=== PATIENT | female | born 1980 | race Caucasian/White ===

== ENCOUNTER 2022-07-17 12:50 | Emergency (ER) | payer OTHER, SELFPAY ==
--- NOTE | ~2022-07-17 | XR_ITS ---
EXAMINATION: XR TOE, right great CLINICAL INFORMATION: Pain COMPARISON: None available at the time of this dictation. TECHNIQUE: Frontal and lateral views of the toe obtained. AP foot FINDINGS: Mildly displaced comminuted fracture at the base of the distal phalanx extending into the articular surface. There is surrounding soft tissue swelling. Metatarsophalangeal and interphalangeal joints are intact. Surrounding soft tissue is normal. XR/XR toe RT min 2V IMPRESSION: Mildly displaced comminuted intra-articular fracture at the base of the distal phalanx great toe.
[2022-07-17 12:54] VITALS: BP 126/82; PULSE 95; RESP 18; TEMP 36.6; O2SAT 98; BMI 31.6
--- NOTE | 2022-07-17 15:09 | ED.LOWEXIN ---
HPI - Extremity Injury (Lower) General Chief Complaint: Extremity Injury, Lower Stated Complaint: Broken? Big toe R foot Time Seen by Provider: 07/17/22 14:45 Source: patient Mode of arrival: ambulatory Limitations: no limitations History of Present Illness HPI Narrative: 41 yold female presents to the ED for right great toe pain. patient states yesterday she dropped a large candle on her big toe which than purplish. patient denies any leg swelling, calf pain, bleeding, numbness/tinling, coolness, or any other concerning symptoms. Related Data Previous Rx's Medication Instructions Recorded naproxen 500 mg tablet 500 mg PO BID PRN pain 7 days #14 07/17/22 tabs Allergies Allergy/AdvReac Type Severity Reaction Status Date / Time amoxicillin Allergy Rash Verified 07/17/22 12:58 Penicillins [PCN] Allergy Rash Verified 07/17/22 12:58 Review of Systems Review of Systems: RIght big toe pain Yes all other systems are reviewed and are negative [facility] Social History Social History Advance Directives: No Advance Directives Information Provided: No Physical Exam Vital Signs: Vital Signs: Last Vital Signs Temp 98 F 07/17/22 12:54 Pulse 95 07/17/22 12:54 Resp 18 07/17/22 12:54 BP 126/82 07/17/22 12:54 Pulse Ox 98 07/17/22 12:54 O2 Del Method 07/17/22 12:54 BMI result Body Mass Index 31.6 Const: General: cooperative, healthy appearing, comfortable, no acute distress, well developed, alert and awake Orientation/consciousness: oriented to person, oriented to time and patient oriented x3 HEENT: Head: Yes normal to inspection, Yes No palpable skull fracture present, Yes normocephalic, Yes atraumatic and No abrasion Eyes: General: appearance normal, both eyes and all related structures Neck: Neck: Yes normal visual inspection, Yes full ROM, Yes no lymphadenopathy, Yes no meningeal signs, Yes trachea midline, Yes supple, No anterior neck swelling and No tender Chest: Chest palpation & inspection: normal inspection of the chest and normal palpation of entire chest wall Resp: Effort & Inspection: normal respiratory effort and able to speak in complete sentences Auscultation: clear to auscultation bilaterally Cardio: Jugular venous distension: no JVD Heart sounds: S1 normal heart sound present and S2 normal heart sound present GI: Inspection: Yes normal to inspection and No abdominal wall ecchymosis Palpation (GI): Soft to palpation, not firm, nontender, no guarding and not rigid : General: No CVA tenderness and Yes no CVA tenderness Back/Spine/Pelvis: Back: no CVA tenderness, No CVA tenderness and No back tenderness Skin: General skin exam: no rashes or lesions noted and elasticity normal Neuro: General: oriented to person, oriented to time, patient oriented x3, gait normal, tone normal and no meningeal signs Extrem: General: Yes normal to inspection and Yes full ROM Ankle/foot/toe images: 1. Positive for ecchymosis and tenderness on palpation. Capillary refill is intact. Rest of extremity normal. Motor/neuro/vascular exam intact Psych: Appearance: grossly normal, well kempt and not disheveled Course Course Course Narrative: Foot x-ray ordered. Reevaluation(s) Reevaluation #1: X-ray showed great toe fracture. PATIENT PLACED IN POST-OP SHOE AND GIVEN PAIN MEDS Time: 15:29 MDM - Extremity Injury (Lower) MDM Narrative Medical decision making narrative: foOT FRACTURE Discharge Plan Discharge Clinical Impression: Fracture of toe Patient Disposition: Home, Self-Care Instructions: Toe Fracture (ED) Additional Instructions: YOUR XRAY SHOWS GREAT TOE FRACTURE. yOU WILL BE NEED FOLLOW UP WI oRTHOPEDIC sURGEON. rETURN TO THE ed FOR WORSENING PAIN, SWELLING, REDNESS, NUMBNESS, TINGLING, LEG PAIN, CALF PAIN, NUMBNESS/TINGLING OR ANY OTHER CONCERNING SYMPTOMS. Prescriptions: New naproxen 500 mg tablet 500 mg PO BID PRN (Reason: pain) 7 Days Qty: 14 0RF Referrals: [facility] [place] [facility] [Provider Group] (Right great toe fracture) Stand Alone Forms: Work/School Release Interventions: ED Discharge Assessment Last Done: 07/17/22 16:01 Discharge Date/Time: 07/17/22 16:02 Print Language: Mongolian
[2022-07-17] MEDS: Ibuprofen 400 MG TABLET PO (15:15)
[2022-07-17] MEDS: Acetaminophen 325 MG TABLET 975 MG PO (15:15)
== END 2022-07-17 16:02 | disposition home or self-care (01) ==
PROVIDERS: Emergency Provider Student in an Organized Health Care Education/Training Program; PCP Internal Medicine
DX: S92.401A Displaced unspecified fracture of right great toe, initial encounter for closed fracture (principal); M79.674 Pain in right toe(s); Y29.XXXA Contact with blunt object, undetermined intent, initial encounter; Y93.9 Activity, unspecified; Y92.9 Unspecified place or not applicable; Y99.9 Unspecified external cause status
CPT/HCPCS: 73660; 99283; 99284

== ENCOUNTER 2022-08-09 22:12 | Emergency (ER) | payer OTHER, SELFPAY ==
--- NOTE | 2022-08-09 | ECG_ITS ---
Test Reason : OVERDOSES Blood Pressure : / mmHG Vent. Rate : 103 BPM Atrial Rate : 103 BPM P-R Int : 160 ms QRS Dur : 078 ms QT Int : 332 ms P-R-T Axes : 053 -01 015 degrees QTc Int : 434 ms Sinus tachycardia RSR' or QR pattern in V1 suggests right ventricular conduction delay Otherwise normal ECG No previous ECGs available Referred By: Mela Andino Electronically Signed By:OMARI VARGAS MD
[2022-08-09 22:19] VITALS: BP 142/95; PULSE 107; RESP 22; TEMP 36.9; O2SAT 99; BMI 31.6
--- NOTE | 2022-08-09 22:38 | ED.OVERDOSE ---
HPI - Overdose General Chief Complaint: Overdose Stated Complaint: overdose Time Seen by Provider: 08/09/22 22:14 Source: patient and EMS Mode of arrival: EMS Limitations: no limitations History of Present Illness HPI Narrative: 41-year-old female came in by ambulance after overdosed on half a bag of heroin by sniffing patient stated that she did not use for the last 3 years and used today to get high, no SI, no HI was found by her friend unresponsive patient was given 8 mg of Narcan intranasally by the police and patient responded and regained her consciousness, no CPR was required. Patient in the emergency department is awake, alert, able to answer questions, no SI or HI or hallucination. Related Data Previous Rx's Medication Instructions Recorded naproxen 500 mg tablet 500 mg PO BID PRN pain 7 days #14 07/17/22 tabs nitrofurantoin 100 mg PO Q12H 7 days #14 caps 08/09/22 monohydrate/macrocrystals 100 mg capsule (Macrobid) Allergies Allergy/AdvReac Type Severity Reaction Status Date / Time amoxicillin Allergy Rash Verified 07/17/22 12:58 Penicillins [PCN] Allergy Rash Verified 07/17/22 12:58 Review of Systems Review of Systems: All other systems are reviewed and are negative Constitutional: Reports as per HPI and Reports no additional constitutional complaints Eyes: Reports as per HPI and Reports no additional eye complaints Reports system reviewed and no additional complaints, except as documented Cardiovascular: Reports as per HPI and Reports no additional cardiovascular complaints Respiratory: Reports as per HPI and Reports no additional respiratory complaints Gastrointestinal: Reports as per HPI and Reports no additional gastrointestinal complaints Genitourinary: Reports no additional female genitourinary complaints Musculoskeletal: Reports no additional musculoskeletal complaints Skin/Breast: Reports system reviewed and no additional complaints, except as docu Psychiatric: Reports no additional psychiatric complaints Endocrine: Reports no additional endocrine complaints Hematologic/Lymphatic: Reports no additional hematologic/lymphatic complaints Allergic/Immunologic: Reports no additional allergic/immunologic complaints Reports system reviewed and no additional complaints, except as documented and Reports Abnormal speech present Physical Exam Vital Signs: Vital Signs: Last Vital Signs Temp 98.4 F 08/09/22 22:19 Pulse 107 H 08/09/22 22:19 Resp 22 H 08/09/22 22:19 BP 142/95 H 08/09/22 22:19 Pulse Ox 99 08/09/22 22:19 O2 Del Method 08/09/22 22:19 BMI result Body Mass Index 31.6 Vital signs have been reviewed as appeared to be correct. Blood pressure elevated. Heart rate elevated. Respiration rate elevated. Temperature normal. Oxygen saturation normal. Appearance: Alert. Oriented X3. No acute distress. Head: Normal external exam. Normocephalic. Atraumatic. No Mobley signs noted. No raccoon eyes noted Eyes: PERRLA. EOMI. Conjunctiva and sclera normal. Eyelids normal. ENT: TM's Normal. Pharynx normal. Uvula midline. Moist mucous membranes. No trismus noted. No drooling noted. No muffled voice noted. Neck: Normal inspection. Neck supple. FROM. No adenopathy. Thyroid Normal. No meningeal signs. No neck mass noted. CVS: Normal heart rate and rhythm. Heart sound normal. No murmurs noted. Pulses normal throughout. Respiratory: No respiratory distress. Painless inspiration. Breath sounds normal. No wheezes/rales/rhonchi noted. Chest nontender. No accessory muscle usage noted or decreased air movement noted. Abdomen: Soft and nontender. Bowel sounds normal in all 4 quadrants. No distention noted. No organomegaly noted. No visible injury noted. Back: No CVA tenderness. Full range of motion noted. Skin: Skin warm and dry. Normal skin color. Normal skin turgor. No rashes/lesions/lacerations noted. Extremities: No lower extremity edema. Extremities exhibit normal range of motion. Extremities nontender. Neuro: Oriented X 3. Cranial nerve exam: II-XII are grossly intact No motor deficit. No sensory deficit. Reflexes normal. Course Course Course Narrative: 41-year-old female came in unresponsive after using half a bag of heroin by sniffing patient required 8 mg of Narcan nasally, patient was observed in the emergency department was discharged with Narcan to take home, patient declined SI or HI, patient claimed that she is not a regular user the last use was 3 hours ago and she only use occasionally, was evaluated by care team who recommended no further intervention and would like to be discharged. UTI will start on macrobid and encourage to drink plenty of fluid. MDM - Overdose Lab Data Attestation: I reviewed the patient's lab results. Labs: Lab Results 11/08/09/22 08/09/22 Range/Units 22:59 22:59 22:59 Urine Color Yellow Urine Appearance Cloudy Urine pH 6.5 (5.0-9.0) Ur Specific [place] 1.020 (1.005-1.025) Urine Protein 30 (1+) H (Neg-Trace) mg/dL Urine Glucose (UA) Negative (Negative) mg/dL Urine Ketones Trace (Negative) mg/dL Urine Blood Negative (Negative) Urine Nitrite Negative (Negative) Ur Leukocyte Esterase Small (1+) H (Negative) Urine RBC 0-2 (0-2) /HPF Urine WBC 11-20 H (0-5) /HPF Ur Squamous Epith Cells 6-10 (0-2) /HPF Urine Bacteria 4+ (None Seen) Hyaline Casts 0-2 (0-2) /LPF Urine Test NEGATIVE (NEGATIVE) Urine Opiates Screen POSITIVE H (Not Detect) Urine Fentanyl Screen POSITIVE H (Not Detect) Ur Barbiturates Screen Not Detected (Not Detect) Ur Phencyclidine Scrn Not Detected (Not Detect) Ur Amphetamines Screen Not Detected (Not Detect) U Benzodiazepines Scrn Not Detected (Not Detect) Urine Cocaine Screen POSITIVE H (Not Detect) U Marijuana (THC) Screen Not Detected (Not Detect) Discharge Plan Discharge Clinical Impression: Drug overdose, Substance abuse, Urinary tract infection Patient Disposition: Home, Self-Care Instructions: Polysubstance Abuse (ED) Prescriptions: New nitrofurantoin monohyd/m-cryst [Macrobid] 100 mg capsule 100 mg PO Q12H 7 Days Qty: 14 0RF Rx Instructions: must administer with a meal/food No Action naproxen 500 mg tablet 500 mg PO BID PRN (Reason: pain) 7 Days Qty: 14 0RF
[2022-08-09 23:06] LABS: Appearance Urine Cloudy; Color Urine Yellow; Glucose Urine UA Negative (Negative); Leukocyte Esterase Urine Small (1+) (Negative); Nitrite Urine Negative (Negative); PH 6.5 (5.0-9.0); UMIC TRIGGER UACC YES; Urine Blood Negative (Negative); Urine Ketones Trace mg/dL (Negative); Urine Protein 30 (1+) mg/dL (Neg-Trace)
[2022-08-09 23:08] LABS: UPreg QC Valid YES; Urine Pregnancy NEGATIVE (NEGATIVE)
[2022-08-09 23:11] LABS: Bacteria Urine 4+ (None Seen); Hyaline Casts Urine 0-2 /LPF (0-2); RBC Urine 0-2 /HPF (0-2); UACC Culture Trigger YES
[2022-08-09 23:28] LABS: Amphetamine Screen Urine Not Detected (Not Detect); Barbiturates, Urine Not Detected (Not Detect); Benzodiazepines Screen Urine Not Detected (Not Detect); Cannabinoid Screen Urine Not Detected (Not Detect); Cocaine Screen Urine POSITIVE (Not Detect); Fentanyl, urine POSITIVE (Not Detect); Opiate Screen Urine POSITIVE (Not Detect); Phencyclidine Screen Urine Not Detected (Not Detect)
--- NOTE | 2022-08-10 00:12 | MHC.CARE ---
Pt is seen for a SUDE. Pt explains that she has been clean for three years. She states she thinks she broke her toe and has been struggling with the pain for over a month and feels that her PCP is not taking her seriously. She states she did not anticipate on using today, but couldn't fathom the pain and went to look for a percocet on the street couldn't find one so did a small amount of heroin. She states she is stressed out with the holiday and now really ashamed of herself, also considering she was taken off suboxone in Oct for doing well. She shares that she has a therapist, and is not interested in any services as she feels this was an isolated incident. States she only used heroin for the pain and has a ride home. Pt is tearful throughout eval.
[2022-08-10] MEDS: Naloxone HCl Nasal TAKE HOME 4 MG SPRAY NOSTRILALT (00:28)
[2022-08-10] MEDS: Nitrofurantoin Monohyd/M-Cryst 100 MG CAPSULE PO (00:28)
--- NOTE | 2022-08-10 00:28 | PC.NURSE ---
Pt was given Narcan to take at home to prevent overdose. Pt verbalized understanding of education.
== END 2022-08-10 00:58 | disposition home or self-care (01) ==
PROVIDERS: Emergency Provider Emergency Medicine
DX: T40.1X1A Poisoning by heroin, accidental (unintentional), initial encounter (principal); R40.4 Transient alteration of awareness; F19.10 Other psychoactive substance abuse, uncomplicated; Y92.9 Unspecified place or not applicable; N39.0 Urinary tract infection, site not specified; B96.1 Klebsiella pneumoniae [K. pneumoniae] as the cause of diseases classified elsewhere
CPT/HCPCS: 80307; 81001; 81025; 87086; 87088; 87186; 93005; 99284

== ENCOUNTER 2023-01-25 13:57 | Emergency (ER) | payer OTHER, SELFPAY ==
--- NOTE | 2023-01-25 | ECG_ITS ---
Test Reason : tachycardia Blood Pressure : / mmHG Vent. Rate : 106 BPM Atrial Rate : 106 BPM P-R Int : 154 ms QRS Dur : 094 ms QT Int : 338 ms P-R-T Axes : 048 000 014 degrees QTc Int : 448 ms Sinus tachycardia Incomplete right bundle branch block Abnormal ECG When compared with ECG of 09-AUG-2022 22:49, No significant change was found Referred By: Sowmya Sexton Electronically Signed By:MAX WALTON
--- NOTE | ~2023-01-25 | XR_ITS ---
EXAMINATION: XR TIBIA AND FIBULA, LEFT CLINICAL INFORMATION: Trauma, pain, hematoma. COMPARISON: None available. TECHNIQUE: AP and lateral views of the left tibia and fibula were obtained. FINDINGS: Asymmetric soft tissue thickening along the medial and posterior surface of the mid calf. No unexpected radiopaque foreign bodies. No acute fractures or malalignment. XR/XR tibia fibula LT 2V IMPRESSION: 1. Asymmetric soft tissue thickening along the medial and posterior surface of the mid calf. 2. No acute fractures or malalignment.
--- NOTE | ~2023-01-25 | US_ITS ---
EXAMINATION: US VENOUS ULTRASOUND WITH DOPPLER LOWER EXTREMITY, LEFT CLINICAL INFORMATION: Left lower extremity edema. COMPARISON: None available. TECHNIQUE: Ultrasound of the deep veins is performed from the hip to the calf with compression sonography and color and pulse Doppler assessment. Spectral analysis with color-flow imaging is performed. FINDINGS: There is normal venous compression and respiratory variation and augmented flow. The visualized common femoral vein, superficial femoral vein, profunda femoral vein, popliteal vein, and the trifurcation region shows no evidence of deep venous thrombosis. There is no significant popliteal fossa cyst. There is a complex collection in the medial mid calf measuring 7.5 x 2 x 4.8 cm with multiple internal septations and debris. No definite internal vascularity. There is surrounding hyperemia. Enlarged and somewhat rounded left inguinal lymph node measuring 1.2 cm. US/US venous duplex LE IMPRESSION: 1. No DVT demonstrated in the left lower extremity. 2. There is a 7.5 cm complex multiloculated collection in the medial mid calf with surrounding hyperemia. Nonspecific could represent a hematoma or an abscess. Recommend a short-term follow-up ultrasound to ensure resolution and to rule out malignancy. 3. Enlarged and rounded left inguinal lymph node could be reactive, a short-term follow-up is also recommended.
--- NOTE | ~2023-01-25 | XR_ITS ---
EXAMINATION: XR CHEST CLINICAL INFORMATION: Chest pain. COMPARISON: None available. TECHNIQUE: 2 views of the chest were obtained. FINDINGS: No significant abnormality is noted involving the heart, lungs, mediastinum, bony thorax or soft tissues. XR/XR chest 2V IMPRESSION: Unremarkable examination.
--- NOTE | ~2023-01-25 | XR_ITS ---
EXAMINATION: XR FINGER, LEFT CLINICAL INFORMATION: History of left fourth finger fracture with surgical repair. COMPARISON: None available. TECHNIQUE: 3 views of the left ring finger. FINDINGS: There are 4 traversing pins along the distal fourth middle phalanx overlying a mildly displaced comminuted fracture. There is surrounding soft tissue thickening. No additional fractures. Carpal rows are maintained. No other significant soft tissue abnormality. XR/XR finger LT min 2V IMPRESSION: Mildly displaced comminuted fracture of the fourth middle phalanx with traversing orthopedic pins and surrounding soft tissue thickening. Prior examinations are not available for comparison. Soft tissue thickening could potentially represent superimposed infection, correlate with physical examination. There is no significant signs of healing, the fracture lines are still visible with no significant osseous bridging or callus formation.
[2023-01-25 14:05] VITALS: BP 136/102; BP 154/90; PULSE 120; PULSE 127; TEMP 37.4; O2SAT 97; O2SAT 99; BMI 35.9
--- NOTE | 2023-01-25 14:08 | ED.GENADULT ---
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 repair.? COMPARISON: None available.? TECHNIQUE: 3 views of the left ring finger. FINDINGS: There are 4 traversing pins along the distal fourth middle phalanx overlying a mildly displaced comminuted fracture. There is surrounding soft tissue thickening. No additional fractures. Carpal rows are maintained. No other significant soft tissue abnormality.? XR/XR finger LT min 2V IMPRESSION: Mildly displaced comminuted fracture of the fourth middle phalanx with traversing orthopedic pins and surrounding soft tissue thickening. Prior examinations are not available for comparison. Soft tissue thickening could potentially represent superimposed infection, correlate with physical examination. There is no significant signs of healing, the fracture lines are still visible with no significant osseous bridging or callus formation. Dictated By: Francheska Nobles Signed By: <Electronically signed by Parish Nobles in OV> 01/25/23 1622 DD/ 1604 TD/TT:? Hall Manager: EXAMINATION: XR CHEST CLINICAL INFORMATION: Chest pain. COMPARISON: None available. TECHNIQUE: 2 views of the chest were obtained. FINDINGS: No significant abnormality is noted involving the heart, lungs, mediastinum, bony thorax or soft tissues. XR/XR chest 2V IMPRESSION: Unremarkable examination. Dictated By: Francheska Nobles Signed By: <Electronically signed by Parish Nobles in OV> 01/25/23 1619 DD/ 1604 TD/TT:? Hall Manager: External Record Review External record reviewed: Inpatient record, Office record, Outpatient record, Prior outpatient labs, Prior outpatient radiology, Primary care record and Outside ED record Scores Heart Score History: -0- slightly suspicious ECG: -0- normal Age: -0- < or = 45 Risk factory: -1- 1 or 2 risk factors Discharge Plan Discharge Clinical Impression: Cellulitis, Cocaine abuse, Anxiety, Opiate use Patient Disposition: Home, Self-Care Instructions: Anxiety (ED), Cellulitis (ED), Cocaine Abuse (ED), Opioid Use Disorder (ED) Additional Instructions: Stop abusing drugs. You need to follow up with Dr. Macario tomorrow regarding your finger fracture. Take full courses of antibiotics. If any new or worsening symptoms occur, including but not limited to fevers, chills, chest pain, shortness of breath, increased redness, suicidal or homicidal ideation swelling, please return for re-evaluation. Prescriptions: No Action ibuprofen 600 mg tablet 600 mg PO TID PRN (Reason: pain) atomoxetine 18 mg capsule 18 mg PO BID bupropion HCl 300 mg tablet extended release 24 hr 300 mg PO DAILY Referrals: [facility] [Provider Group] - 2 days Benja Huitron MD [Primary Care Provider] - 2 days
[2023-01-25 15:52] LABS: MANUAL DIFF FLAG NO
[2023-01-25 15:54] LABS: Basophils Absolute Auto 0.1 X10*3/uL (0.0-0.2); Basophils Percent Auto 0.7 % (0-2); Eosinophils Absolute Auto 0.1 X10*3/uL (0.0-0.4); Eosinophils Percent Auto 1.2 % (0-4); Hematocrit 39.7 % (37.0-47.0); Hemoglobin 13.6 g/dl (12.0-16.0); Imm Gran Abs Auto 0.02 X10*3/uL (0.00-0.03); Imm Gran Pct Auto 0.2 % (0.0-0.4); Lymphocytes Absolute Auto 2.3 X10*3/uL (1.2-4.9); Lymphocytes Percent Auto 23.8 % (20-40); Mean Corpuscular HGB Conc 34.3 g/dl (31.0-35.0); Mean Corpuscular Hemoglobin 30.9 pg (27.0-33.0); Mean Corpuscular Volume 90.2 fL (80.0-98.0); Mean Platelet Volume 9.6 fL (9.4-12.3); Monocytes Absolute Auto 1.1 X10*3/uL (0.1-1.2); Monocytes Percent Auto 11.4 % (2-11); Neutrophils Absolute Auto 6.1 x10*3/uL (2.0-8.3); Neutrophils Percent Auto 62.7 % (45-73); Platelet Count 336 X10*3/uL (160-400); Red Cell Distribution Width 13.1 % (11.0-16.0); White Blood Count 9.7 X10*3/uL (4.8-10.8)
[2023-01-25 16:04] LABS: Lactic Acid 0.9 mmol/L (0.5-2.0)
[2023-01-25] MEDS: LORazepam 2 MG/ML VIAL 1 MG IVPUSH (16:11)
[2023-01-25 16:12] LABS: Alanine Aminotransferase 16 U/L (0-31); Albumin Level 4.5 g/dL (3.5-5.0); Alkaline Phosphatase 83 U/L (39-117); Anion Gap 14 (12-20); Aspartate Amino Transferase 25 U/L (5-31); Bilirubin Direct 0.2 mg/dL (0.0-0.5); Bilirubin Total 0.6 mg/dL (0.0-1.0); Blood Urea Nitrogen 15 mg/dL (9-16); C Reactive Protein 0.38 mg/dL (< or = 0.50); Calcium 9.9 mg/dL (8.4-10.2); Carbon Dioxide 23 mmol/L (22-29); Chloride 105 mmol/L (96-108); Creatinine Clr Calc Pharmacy 63.7; Estimated Glomerular Filt Rate 51; Ethanol < 10 mg/dL; Glucose Random 99 mg/dL (60-115); Lipase 20 U/L (8-78); Magnesium 1.9 mg/dL (1.6-2.6); Potassium 4.5 mmol/L (3.3-5.1); Sodium 137 mmol/L (135-145); Total Protein 7.7 g/dL (6.5-8.0)
[2023-01-25] MEDS: 0.9 % Sodium Chloride 1,000 ML 999 ML IVCONT (16:16)
[2023-01-25 16:18] LABS: Troponin-I High Sensitivity < 2.7 ng/L (<3.5-17.0)
[2023-01-25 16:34] LABS: Erythrocyte Sedimentation Rate 20 MM/HR (0-20)
[2023-01-25 16:56] LABS: UPreg QC Valid YES; Urine Pregnancy NEGATIVE (NEGATIVE)
[2023-01-25 17:01] LABS: Amphetamine Screen Urine Not Detected (Not Detect); Barbiturates, Urine Not Detected (Not Detect); Benzodiazepines Screen Urine Not Detected (Not Detect); Cannabinoid Screen Urine POSITIVE (Not Detect); Cocaine Screen Urine POSITIVE (Not Detect); Opiate Screen Urine POSITIVE (Not Detect); Phencyclidine Screen Urine Not Detected (Not Detect)
[2023-01-25 17:08] LABS: Fentanyl, urine POSITIVE (Not Detect)
[2023-01-25 17:11] LABS: Appearance Urine Clear; Color Urine Dark Yellow; Glucose Urine UA Negative (Negative); Leukocyte Esterase Urine Negative (Negative); Nitrite Urine Negative (Negative); PH 5.5 (5.0-9.0); Specific Gravity - Urine >= 1.030 (1.005-1.025); UMIC TRIGGER UACC YES; Urine Blood Moderate (2+) (Negative); Urine Ketones Trace mg/dL (Negative); Urine Protein Trace mg/dL (Neg-Trace)
[2023-01-25 17:13] LABS: Bacteria Urine None Seen (None Seen); Hyaline Casts Urine 0-2 /LPF (0-2); WBC Urine 0-5 /HPF (0-5)
[2023-01-25] MEDS: Doxycycline Monohydrate 100 MG CAPSULE PO (17:40)
[2023-01-25] MEDS: cephALEXin 500 MG CAPSULE PO (17:40)
--- NOTE | 2023-01-25 18:22 | PC.NURSE ---
pt brought to ed via ambulance after being found wandering in the streets. pt reports that she did one bag of cocaine and some heroin this morning. she denied intentional overdose, denies si/hi. she reports feeling like she is having a panic attack. she reports pain to her L fourth digit and that she had surgery done on it. finger swollen/red/tender to touch. 20g iv inserted r wrist. meds given as ordered.
[2023-01-25 18:52] VITALS: BP 128/68; PULSE 104; RESP 14; TEMP 36.9; O2SAT 100
[2023-01-25 19:34] VITALS: BP 97/77; PULSE 96; RESP 20; TEMP 36.8; O2SAT 99
--- NOTE | 2023-01-25 19:35 | PC.NURSE ---
per security staff pt okay to keep phone. charge account identification clerk aware
--- NOTE | 2023-01-25 19:35 | PC.NURSE ---
this rn assumed care of pt @ 1900. pt s belongs at bedside when this rn assumed care this rn called security to bedside to secure belongings in decon. when this rn entered pt room pt iv hanging out of R arm. pt states did not notice iv came out . this rn removed iv. this rn made linda connors aware that belongings had still been at bedside as well as pt removal of iv. charge aide aware
[2023-01-25 20:10] LABS: Troponin-I High Sensitivity < 2.7 ng/L (<3.5-17.0)
--- NOTE | 2023-01-25 22:09 | PC.NURSE ---
pt pacing in room. pt reports anxiety. when this rn spoke with pt pt states does not want to take anything for anxiety/ insomnia. kiln charger aware of pt pacing, angela waylon mckeon aware of pt pacing. awaiting for care team consult at this time. continued redirection to room 16
[2023-01-25 23:50] VITALS: BP 138/103; PULSE 130; RESP 17; O2SAT 92
[2023-01-25] MEDS: LORazepam 2 MG/ML VIAL IM (23:50)
[2023-01-25] MEDS: Haloperidol Lactate 5 MG/ML VIAL IM (23:50)
[2023-01-25] MEDS: diphenhydrAMINE HCL 50 MG/ML VIAL IM (23:50)
[2023-01-26] VITALS (15 sets, daily range): BP systolic 79–111; BP diastolic 43–73; PULSE 73–106; RESP 16–30; TEMP 36.8; O2SAT 84–100
--- NOTE | 2023-01-26 00:27 | PC.NURSE ---
care team staff member performing bedside consult. care team at bedside when pt demeanor became increasingly agitated. pt in hallway not redirectable to stretcher or room at this time. pt states want to leave against medical advice per care water team leader , does not feel pt is safe for discharge. clinical coordinator and nurse charge rn discussed with this rn and care team staff plan to move to transfer pt to pod. nurse charge rn, this rn, and security at pt side. pt becoming severely agitated, banging hands on counters, pacing in front of room. pt not allowing this rn or nurse charge rn discuss future plan of care. continued severe agitation and uncooperative. pt directed to bed security placed pt in 4 point velcro restraints. pt medicated according to mar with ativan 2mg im, haldol 5mg im, and benadryl 50mg im
--- NOTE | 2023-01-26 01:00 | PC.NURSE ---
1:[address] velcro restraints released on left leg @ 0015, right leg released @ 0030. left arm released @ 0037. right arm released @ 0045. pt sleeping positioned on back
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
[2023-01-26] MEDS: 0.9 % Sodium Chloride 1,000 ML 999 ML IV (01:40)
--- NOTE | 2023-01-26 02:00 | PC.NURSE ---
bp @ 0134 79/46. this rn at bedside at this time. iv line placed 20 g in l ac. pt remains sleeping at this time. waylon mckeon made aware. fluid order placed. pt medicated according to maynor
--- NOTE | 2023-01-26 02:20 | PC.NURSE ---
@ 0217 spo2 desaturated to 84% on RA. pt sleeping at this time post medication administration. this rn and certified cytotechnologist at bedside at this time. pt placed on [address] chandler made aware spo2 97% on 2LPM NC
[2023-01-26 04:35] LABS: COVID-19 Test Negative (Negative); IDNOW Serial# 6674DD1D
--- NOTE | 2023-01-26 04:59 | PC.NURSE ---
pt weaned off of supplemental o2 maintaining o2 98% RA. pt sleeping at this time. lights dimmed. positioned on back. 1:[address]
[2023-01-26] MEDS: cephALEXin 500 MG CAPSULE PO ×3 (08:45→19:37)
[2023-01-26] MEDS: Doxycycline Monohydrate 100 MG CAPSULE PO ×2 (08:45→19:37)
--- NOTE | 2023-01-26 10:28 | MHC.CARE ---
CARE Team attempts to meet with pt to conduct a follow up to the initial assessment. Pt appears to be in a deep sleep. She is unable to be awoken with a knock or after CARE Team announces their presence. CARE Team will attempt to make contact later.
--- NOTE | 2023-01-26 12:19 | MHC.CARE ---
Addendum entered by Stewart Walkre 01/26/23 12:23: Provider and RN made aware via [place] text Original Note: Hermelinda, [facility] manager video games called requesting that when pt awakens she be given a phone to contact her regarding her daughter who has been placed in DCF custody. [phone]
--- NOTE | 2023-01-26 12:23 | MHC.CARE ---
1145 - CARE Team attempts to meet with pt again. Pt had just engaged in a loud display of yelling and was observed ambulating from the restroom to her bed. Pt fell asleep during the follow up assessment. CARE Team was unable to conduct a full and meaningfull follow up assessment. Will make another attempt later.
--- NOTE | 2023-01-26 15:51 | PC.NURSE ---
assumed care of this pt at 1400. pt calm, cooperative. in room since coming to unit. no complaints.
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
--- NOTE | 2023-01-26 17:11 | MHC.CARE ---
CARE Team attempted to see the pt for an MSU at 1710, but the pt could not be roused to have a conversation. An attempt will be made later on this evening to speak with her and to get a disposition.
--- NOTE | 2023-01-26 18:32 | PC.NURSE ---
pt sleeping, no behavioral issues observed or reported
[2023-01-27 04:18] LABS: CT PCR NOT DETECTED (Not Detect.); NG PCR NOT DETECTED (Not Detect.)
== END 2023-01-26 20:12 | disposition home or self-care (01) ==
PROVIDERS: Physician Assistant Medical; Emergency Provider Student in an Organized Health Care Education/Training Program; PCP Internal Medicine
DX: T40.1X1A Poisoning by heroin, accidental (unintentional), initial encounter (principal); R00.0 Tachycardia, unspecified; L03.012 Cellulitis of left finger; R60.0 Localized edema; M79.645 Pain in left finger(s); M79.644 Pain in right finger(s); L03.116 Cellulitis of left lower limb; Y92.9 Unspecified place or not applicable; F14.10 Cocaine abuse, uncomplicated; F41.9 Anxiety disorder, unspecified; Z20.822 Contact with and (suspected) exposure to COVID-19; Z20.828 Contact with and (suspected) exposure to other viral communicable diseases; Z79.899 Other long term (current) drug therapy
CPT/HCPCS: 0353U; 36415; 71046; 73140; 73590; 80053; 80076; 80307; 81001; 81003; 81025; 82248; 83605; 83690; 83735; 84484; 85025; 85652; 86140; 87040; 87635; 93005; 93971; 96361; 96372; 96374; 99285; J1200; J2060; S9485

== ENCOUNTER 2023-02-22 09:30 | Outpatient (RCR) | payer OTHER, SELFPAY ==
[2023-02-02 10:31] VITALS: BP 128/80; PULSE 80; TEMP 36.4
[2023-02-02 10:37] VITALS: BMI 32.6
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
[2023-02-02 12:48] LABS: Amphetamine Screen Urine Not Detected (Not Detect); Barbiturates, Urine Not Detected (Not Detect); Benzodiazepines Screen Urine Not Detected (Not Detect); Cannabinoid Screen Urine POSITIVE (Not Detect); Cocaine Screen Urine POSITIVE (Not Detect); Fentanyl, urine POSITIVE (Not Detect); Opiate Screen Urine Not Detected (Not Detect); Phencyclidine Screen Urine Not Detected (Not Detect)
--- NOTE | 2023-02-06 15:46 | HO.PHP ---
[facility] staff reviewed with Hilda her positive drug screen and explored with Hilda if she is still actively using. Hilda was surprised to see she was positive for fentanyl and cocaine because her last use was 01/25 or 01/26. Hilda explored if it could have been in her marijuana. Hilda acknowledged that she is using edibles and cannabis at this time but is not continuing with any other substances. Hilda relayed that she wants to work on sobriety and does not have any plans around using Cocaine or any other substance. [facility] staff was receptive and encouraged Hilda to inform staff if she does relapse so we could get her the proper treatment. Hilda was receptive. Hilda completed a relapse prevention plan in the education group and was able to complete it effectively.
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
[2023-02-07 15:16] LABS: Amphetamine Screen Urine Not Detected (Not Detect); Barbiturates, Urine Not Detected (Not Detect); Benzodiazepines Screen Urine Not Detected (Not Detect); Cannabinoid Screen Urine POSITIVE (Not Detect); Cocaine Screen Urine Not Detected (Not Detect); Fentanyl, urine POSITIVE (Not Detect); Opiate Screen Urine Not Detected (Not Detect); Phencyclidine Screen Urine Not Detected (Not Detect)
--- NOTE | 2023-02-08 15:05 | HO.PHP ---
Clients case was reviewed and opened today in treatment team.
--- NOTE | 2023-02-09 07:21 | HO.PHP ---
Addendum entered by Imani Maier 02/09/23 07:26: Meeting occurred with Hilda on the date of 02/08/23 around 12 PM. Original Note: [facility] staff reviewed with Hilda her most recent drug screen that had come back positive for Fentanyl and Cannabis. Hilda continues to deny the use of Fentanyl is uncertain how she has that in her system. [facility] staff was receptive and provided her with a resource to the [facility] if that is something she is struggling with. Hilda noted she does not need this at this time due to not feeling sick enough for that type of treatment. Hilda talked about how she received a Title I Math Tutor from [facility]. [facility] staff was receptive. Hilda continued to vocalize that she wants to work on her sobriety and mentioned discontinuing cannabis the other day. [facility] staff was receptive and encouraged her to reach out for support when she needs it, so we can provide her with the proper supports for recovery. Hilda was receptive.
--- NOTE | 2023-02-09 15:13 | HO.PHP ---
[facility] staff member reached out to Hilda's therapist and left a message informing her of her engagement while in the program. [facility] staff also disclosed her start date and end date. [facility] staff encouraged her therapist to reach out if she has any additional questions.
[2023-02-14 16:05] LABS: Amphetamine Screen Urine Not Detected (Not Detect); Barbiturates, Urine Not Detected (Not Detect); Benzodiazepines Screen Urine Not Detected (Not Detect); Cannabinoid Screen Urine Not Detected (Not Detect); Cocaine Screen Urine Not Detected (Not Detect); Fentanyl, urine Not Detected (Not Detect); Opiate Screen Urine Not Detected (Not Detect); Phencyclidine Screen Urine Not Detected (Not Detect)
--- NOTE | 2023-02-15 16:59 | HO.PHP ---
[facility] staff member met with Hilda to review her most recent drug screen. PHP staff informed her that it was negative. Hilda was receptive. [facility] staff also informed Hilda about a [facility] Cash Posting Clerk reaching out and explored if Hilda would be willing to sign a release of information for her to speak with safety investigator and discussed what she would like released. Hilda signed off on the release.
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
--- NOTE | 2023-02-16 12:15 | P.PNPSP_ITS ---
Subjective Subjective Date of Service: 02/16/23 Reason For Visit: depression,anxiety,HUMA Medical Problems Affecting Mental Status: No Interim History: Mood less depressed, continues with some anxiety, rates a 6 on scale 1-10, 10 being the worst. States that daily she can manage a level of anxiety at 7 or 8. No SI, no safety concerns. Sleep is improved. Taking medications as prescribed, remembering to take p.m. dose guanfacine now. Denies any opioid cravings, not interested in MAT at this time. Finding groups helpful. Requesting paperwork for work be completed. Medication Compliance: Yes Side effects from medications: No Attending Groups: Yes Review of Systems Acute medical concerns: No Medical Review of Systems: unchanged Review of Systems Review of Systems Yes all other systems are reviewed and are negative Constitutional: Reports no additional constitutional complaints Mental Status Exam Mental Status Exam Patient Appearance: Appropriate Patient Orientation: Person, Place, Time and Situation Level of Consciousness: Appropriate Patient Behavior: Appropriate, Cooperative and Good Eye Contact Behavior Comments: Reports that since starting program she feels she is better able to regulate her emotions, also improved sleep. Mood Description: Depressed (improving) and Anxious Affect Description: Appropriate and Anxious Patient Cognition Impaired: No Ability to Follow Directions: Excellent Speech Pattern: Clear, Appropriate and Coherent Memory Description: Intact Hallucinations: None Delusions: Not Present Thought Process: Intact, Goal Oriented and Linear Thought Content: positive for Intact, positive for Goal Oriented and positive for Linear Depressive Symptoms: Increased Anxiety, Feelings of Guilt and Difficulty Concentrating Judgement: Fair Diagnostics Vital Signs (24Hr): BMI result Body Mass Index 32.6 Labs Labs: Laboratory Results - last 48 hr 02/14/23 13:50 Urine Opiates Screen Not Detected Urine Fentanyl Screen Not Detected Ur Barbiturates Screen Not Detected Ur Phencyclidine Scrn Not Detected Ur Amphetamines Screen Not Detected U Benzodiazepines Scrn Not Detected Urine Cocaine Screen Not Detected U Marijuana (THC) Screen Not Detected Assessment & Plan Assessment & Plan (1) Depression, major, recurrent, moderate: Status: Acute Code(s): F33.1 - Major depressive disorder, recurrent, moderate Assessment and Plan: Continues with depression, although much improved. Continues with anxiety, feels that some of this may be situational. Reports that there were days last week when she woke up and vomited due to high anxiety. States that that has not occurred this week. We discussed her current medication regimen. She is satisfied with meds at present. We discussed possible trial of anti anxiety meds if needed, including BuSpar, hydroxyzine. She has tried hydroxyzine in the past and did not like it, it was too sedating. She will read about BuSpar. She reports that at times she has mood had mood lability. Reviewed symptoms of bipolar 2 with her. She does acknowledge times in her life where she has had increased energy, mood fluctuations, days with high energy. There is a family history of bipolar disorder. However, patient does have a history of ADD/ADHD, including impulsivity. We also discussed possibility of trialing lamotrigine. Discussed medication in detail, risks and benefits of each med, side effects both benign and more serious, alternatives to treatment. She stated that she will consider these options in the future. (2) Generalized anxiety disorder: Status: Acute Code(s): F41.1 - Generalized anxiety disorder (3) Opioid dependence, uncomplicated: Status: Acute Code(s): F11.20 - Opioid dependence, uncomplicated Assessment and Plan: Remains abstinent from opioids at this time. Has done well in the past with methadone, however tapered off in 2021. Is not interested in Suboxone, methadone, Vivitrol at this time. Education provided regarding these choices, she stated she will see treatment if she feels need. She denies any current cravings or withdrawals. (4) Cocaine dependence, unspecified: Status: Acute Code(s): F14.20 - Cocaine dependence, uncomplicated Assessment and Plan: Remains abstinent from cocaine. No cravings. Does not report any concerns regarding this. Plan 1. Continue with current [facility] plan of care. 2. Continue with medications as prescribed by outpatient provider. 3. Short term Disability / sick bank paperwork were completed for work. 4. Follow-up as per protocol. Patient educated on: diagnosis, medication risk/benefits, substance abuse and therapeutic strategies Informed Consent: understands Reason for contiued partial hosp. stay Substantial Risk for: inability to function and rapid decompensation Certification I certify that partial hospital treatment is medically necessary due to the symptoms and problems resulting from the patient's mental illness and the failure to treat the patient at the partial hospital level of care would likely result in the patient requiring inpatient psychiatric care which could not be prevented at a less intensive level of care. Total time managing care of this patient today ___20_ minutes. Discharge Plan Discharge Attending provider: Dorian Singh Medications: New guanfacine 1 mg tablet 0.5 mg PO BID Qty: 10 0RF naloxone [Narcan] 4 mg/actuation spray,non-aerosol 4 mg intranasal Q2M PRN (Reason: opioid overdose) Qty: 2 1RF Rx Instructions: spray 1 dose into ONE nostril; alternate nostrils w each dose until help arrives guanfacine 1 mg tablet 0.5 mg PO BID Qty: 10 0RF No Action ibuprofen 600 mg tablet 600 mg PO TID PRN (Reason: pain) bupropion HCl 300 mg tablet extended release 24 hr 300 mg PO DAILY atomoxetine 60 mg capsule 60 mg PO QAM acetaminophen 500 mg tablet 500 mg PO TID PRN (Reason: Pain) Patient Comments: Patient takes prn for pain Stand Alone Forms: Patient Portal Discharge page Patient Education: Depression (DC), Opioid Use Disorder (DC)
--- NOTE | 2023-02-16 14:45 | HO.PHP ---
[facility] staff met with Hilda to review extending her discharge to next . Hilda was in agreement and talked about how beneficial this program has been to her.
--- NOTE | 2023-02-21 16:05 | HO.PHP ---
[facility] staff met with Hilda to contact [facility] together. PHP staff gathered information for a release and Hilda provided her signatures. [facility], in which the individual she spoke with Laila, had scheduled her for an intake SundayFebruary 26 at 12 PM. Hilda was receptive. Hilda explored with [facility] staff the times of that program. PHP staff stated she is uncertain but the website says it is 5 days a week for 3.5 hours. PHP staff encouraged her to ask that question in the intake. Hilda was receptive and noted she has some prior engagements and wants to know if she needs to reschedule. PHP staff was receptive.
--- NOTE | 2023-02-22 12:02 | P.PNPSP_ITS ---
Subjective Subjective Date of Service: 02/22/23 Reason For Visit: depression,anxiety,HUMA Medical Problems Affecting Mental Status: No Interim History: Describes mood as ?pretty decent ?. Feels much more stable, less anxious. Less depressed. Expressed hope for future. Plans to go to [facility] after leaving here, has her intake there on Sunday. Feels stable for discharge from [facility] at this time. No SI, no safety concerns. Medication Compliance: Yes Side effects from medications: No Attending Groups: Yes Review of Systems Acute medical concerns: No Medical Review of Systems: changed Review of Systems Review of Systems Yes all other systems are reviewed and are negative Constitutional: Reports no additional constitutional complaints Mental Status Exam Mental Status Exam Patient Appearance: Appropriate Patient Orientation: Person, Place, Time and Situation Level of Consciousness: Appropriate and Alert Patient Behavior: Appropriate, Cooperative and Good Eye Contact Behavior Comments: Reports that since starting program she feels she is better able to regulate her emotions, also improved sleep. Mood Description: Calm Affect Description: Appropriate Patient Cognition Impaired: No Ability to Follow Directions: Excellent Speech Pattern: Clear, Appropriate and Coherent Memory Description: Intact Hallucinations: None Delusions: Not Present Thought Process: Intact, Goal Oriented and Linear Thought Content: positive for Intact, positive for Goal Oriented and positive for Linear Judgement: Good Diagnostics Vital Signs (24Hr): BMI result Body Mass Index 32.6 Assessment & Plan Assessment & Plan (1) Depression, major, recurrent, moderate: Status: Acute Code(s): F33.1 - Major depressive disorder, recurrent, moderate Assessment and Plan: Describes mood as ?pretty decent ?. Feels much more stable, less anxious. Less depressed. Taking medications as prescribed. Has found the group work here very helpful, practicing acceptance and newly learned coping skills. Expressed hope for future. Has an upcoming court date with [facility] for her daughter next month. Has begun working with a plant operations coordinator. States that she is trying to do everything required so that she can resume custody of her daughter. Plans to go to [facility] after leaving here, has her intake there on Sunday. Remains abstinent from any substance use, feels much more grounded in her recovery at this time. Feels stable for discharge from [facility] at this time. No SI, no safety concerns. (2) Opioid dependence, uncomplicated: Status: Acute Code(s): F11.20 - Opioid dependence, uncomplicated (3) Generalized anxiety disorder: Status: Acute Code(s): F41.1 - Generalized anxiety disorder (4) Cocaine dependence, unspecified: Status: Acute Code(s): F14.20 - Cocaine dependence, uncomplicated Plan 1. Patient appears stable for discharge from [facility] at this time. 2. Patient to follow-up with outpatient providers going forward. Patient educated on: diagnosis, medication risk/benefits, substance abuse and therapeutic strategies Reason for contiued partial hosp. stay Substantial Risk for: stable for discharge Certification I certify that partial hospital treatment is medically necessary due to the symptoms and problems resulting from the patient's mental illness and the failure to treat the patient at the partial hospital level of care would likely result in the patient requiring inpatient psychiatric care which could not be prevented at a less intensive level of care. Total time managing care of this patient today _20___ minutes. Discharge Plan Discharge Attending provider: Dorian Singh Additional Instructions: Hilda discharged from [facility] on February 22, 2023. Hilda is committed to continuing to work towards sobriety and improving her overall mood. Hilda is going to continue with outside [place]. Hilda has an OP provider, Lily Swanson thro [facility] and will be meeting with her on February 26 at 4 PM. Noelle has an appointment earlier in the day on February 26, 2023 at 12 PM with [facility] where she will be attending the intake. Lastly, Hilda has a med provider, Julio Rivera, through [facility] and will be meeting with him on March 05, 2023 at 3 PM. Medications: New guanfacine 1 mg tablet 0.5 mg PO BID Qty: 10 0RF naloxone [Narcan] 4 mg/actuation spray,non-aerosol 4 mg intranasal Q2M PRN (Reason: opioid overdose) Qty: 2 1RF Rx Instructions: spray 1 dose into ONE nostril; alternate nostrils w each dose until help arrives guanfacine 1 mg tablet 0.5 mg PO BID Qty: 10 0RF No Action ibuprofen 600 mg tablet 600 mg PO TID PRN (Reason: pain) bupropion HCl 300 mg tablet extended release 24 hr 300 mg PO DAILY atomoxetine 60 mg capsule 60 mg PO QAM acetaminophen 500 mg tablet 500 mg PO TID PRN (Reason: Pain) Patient Comments: Patient takes prn for pain Stand Alone Forms: Patient Portal Discharge page Patient Education: Depression (DC), Opioid Use Disorder (DC)
== END 2023-02-22 23:59 | disposition home or self-care (01) ==
LOC: HO.PHPA 09:30
PROVIDERS: Nurse Practitioner Psychiatric/Mental Health; Visit Provider Psychiatry & Neurology Psychiatry
DX: F33.1 Major depressive disorder, recurrent, moderate (principal); F41.1 Generalized anxiety disorder; F14.20 Cocaine dependence, uncomplicated; F11.20 Opioid dependence, uncomplicated; Z79.899 Other long term (current) drug therapy
CPT/HCPCS: 80307; 90791; 90853

== ENCOUNTER → 2023-02-22 09:30 | Outpatient (BNV) | payer OTHER, SELFPAY | PROVIDERS: Visit Provider Psychiatry & Neurology Psychiatry | DX: F14.20 Cocaine dependence, uncomplicated (principal); F41.1 Generalized anxiety disorder; F11.20 Opioid dependence, uncomplicated; F33.1 Major depressive disorder, recurrent, moderate | CPT/HCPCS: 90792 ==

== ENCOUNTER → 2025-07-09 10:00 | Outpatient (BNV) | payer OTHER, SELFPAY | PROVIDERS: Visit Provider Psychiatry & Neurology Psychiatry | DX: F33.1 Major depressive disorder, recurrent, moderate (principal); F34.89 Other specified persistent mood disorders; F11.21 Opioid dependence, in remission; F14.21 Cocaine dependence, in remission; F90.9 Attention-deficit hyperactivity disorder, unspecified type; F41.3 Other mixed anxiety disorders | CPT/HCPCS: 99214 ==

== ENCOUNTER 2025-07-23 08:30 | Outpatient (RCR) | payer OTHER, SELFPAY ==
[2025-07-02 10:45] VITALS: BMI 34.2
[2025-07-02 10:46] VITALS: BP 112/82; PULSE 76; TEMP 36.9
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
--- NOTE | 2025-07-02 16:29 | HO.PHP ---
Pt's case has been opened and reviewed in treatment teams.
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
[2025-07-08 14:59] LABS: Cannabinoid Screen Urine Not Detected (Not Detect)
--- NOTE | 2025-07-09 23:56 | P.PNPSP_ITS ---
Subjective Subjective Date of Service: 07/09/25 Reason For Visit: anxiety,depression,HUMA Medical Problems Affecting Mental Status: No Interim History: I want to solidify my recovery so be long-lasting Patient reports overwhelmed overall she is seeing progress feeling still dealing with a lot of anxiety, says it is more generalized anxiety than body anxiety although notes she used to be more prone to panic attacks she can still struggle with panic symptoms she started on lamotrigine and guanfacine this morning and feels perhaps calmer but says she is not sure if this is in (her) head . Overall had a decent weekend states she just has keep busy, a useful strategy in her recovery, as to avoid feeling overwhelmed over thinking catastrophizing catastrophizing. Went to a concert at most he can some is visited by her kids in the friend. Feeling more optimistic about the future. She denies any alcohol use in the interim no substance use. Denies any SI, no safety issues. As any issues with forest or psychotic symptoms. Sleep appetite energy stable. She has a upcoming telehealth appointment with Nighat Pino Medication Compliance: Yes Side effects from medications: No Attending Groups: Yes Review of Systems Acute medical concerns: No Review of Systems Review of Systems Yes all other systems are reviewed and are negative Constitutional: Reports no additional constitutional complaints Mental Status Exam Mental Status Exam Narrative: Alert, oriented, in no acute distress. Calm, cooperative, engaged. No psychomotor agitation or neurovegetative retardation. Eye contact maintained. Mood anxious, less depressed, affect variable. Speech normal. Thought process linear, coherent. Thought content related to stressors, more future-oriented, denies SI or HI. No paranoia or delusional content elicited. No evidence of psychosis. Insight and judgment - fair-good. Patient Appearance: Appropriate Patient Orientation: Person, Place, Time and Situation Level of Consciousness: Appropriate and Alert Patient Behavior: Appropriate, Cooperative and Good Eye Contact Behavior Comments: Reports that since starting program she feels she is better able to regulate her emotions, also improved sleep. Mood Description: Calm Affect Description: Appropriate Patient Cognition Impaired: No Ability to Follow Directions: Excellent Speech Pattern: Clear, Appropriate and Coherent Memory Description: Intact Hallucinations: None Delusions: Not Present Thought Process: Intact, Goal Oriented and Linear Thought Content: positive for Intact, positive for Goal Oriented and positive for Linear Judgement: Good Diagnostics Vital Signs (24Hr): BMI result Body Mass Index 34.2 Assessment & Plan Assessment & Plan (1) Depression, major, recurrent, moderate: Status: Acute Code(s): F33.1 - Major depressive disorder, recurrent, moderate (2) Other specified persistent mood disorders: Status: Acute Code(s): F34.89 - Other specified persistent mood disorders (3) Opioid dependence in remission: Status: Acute Code(s): F11.21 - Opioid dependence, in remission (4) Cocaine dependence in remission: Status: Acute Code(s): F14.21 - Cocaine dependence, in remission (5) Attention-deficit hyperactivity disorder, unspecified type: Status: Acute Code(s): F90.9 - Attention-deficit hyperactivity disorder, unspecified type (6) Other mixed anxiety disorders: Status: Acute Code(s): F41.3 - Other mixed anxiety disorders Plan Continue PHP continue lamotrigine 25 mg qd (increase tby 25 mg/d q 2 weeks until 100 mg as tolerated) continue guanfacine 1 mg qam continue Wellbutrin XL 300 mg qam continue Abilify 2 mg qd continue hydroxyzine 25 mg TID prn anxiety, sleep continue other regular medications: amlodipine, Routine lab work as indicated EKG, routine for baseline QTc for medication considerations as indicated UDS as indicated VS reviewed on admission: afebrile, BP 122/82;?76 bpm Continue to monitor time if [employer] Patient educated on: diagnosis, medication risk/benefits and substance abuse Informed Consent: understands Reason for contiued partial hosp. stay Substantial Risk for: inability to function and med/psych decompensation Certification I certify that partial hospital treatment is medically necessary due to the symptoms and problems resulting from the patient's mental illness and the failure to treat the patient at the partial hospital level of care would likely result in the patient requiring inpatient psychiatric care which could not be prevented at a less intensive level of care. Total time managing care of this patient today __30__ minutes. Discharge Plan Discharge Attending provider: Mavis White Medications: New lamotrigine 25 mg tablet 25 mg PO DAILY 14 Days Qty: 14 0RF guanfacine 1 mg tablet extended release 24 hr 1 mg PO DAILY Qty: 20 0RF aripiprazole 2 mg tablet 2 mg PO BEDTIME Qty: 14 0RF No Action bupropion HCl 300 mg tablet extended release 24 hr 300 mg PO DAILY naloxone [Narcan] 4 mg/actuation spray,non-aerosol See Rx Instructions .ROUTE .COMPLEX PRN (Reason: opioid overdose) Rx Instructions: spray 1 dose into ONE nostril; alternate nostrils w each dose until help arrives amlodipine 5 mg Tablet 5 mg PO DAILY hydroxyzine pamoate 25 mg capsule 25 mg PO TID PRN (Reason: Anxiety/Insomnia) Rx Instructions: TAKE ONE CAPSULE BY MOUTH THREE TIMES A DAY NEEDED FOR ANXIETY AND CAN TAKE FOUR CAPSULES BY MOUTH DAILY AT BEDTIME NEEDED FOR INSOMNIA. Print Language: Lithuanian
--- NOTE | 2025-07-20 12:30 | P.PNPSP_ITS ---
Subjective Subjective Date of Service: 07/20/25 Reason For Visit: anxiety,depression,HUMA Interim History: 44 yo was seeing initially to dc but pt dc tomorrow as missed 1 day so can come tomorrow for make up day\ Discussed her medications - and pt hoping to get adhd treatment with possible stimulant but told pt that should wait till not manic and also till outpatient further assess on new trial of guanfacine er - which might help adhd. Medication Compliance: Yes Side effects from medications: No Attending Groups: Yes Review of Systems Acute medical concerns: No Medical Review of Systems: unchanged Mental Status Exam Mental Status Exam Patient Appearance: Well Grooomed and Appropriate Patient Orientation: Person, Place, Time and Situation Level of Consciousness: Awake Patient Behavior: Appropriate and Talkative Mood Description: Expansive (mildly) Affect Description: Cheerful Patient Cognition Impaired: No Ability to Follow Directions: Fair Speech Pattern: Clear Hallucinations: None Delusions: Not Present Thought Process: Intact Thought Content: positive for Intact and positive for Goal Oriented Depressive Symptoms: Difficulty Concentrating Judgement: Fair Diagnostics Vital Signs (24Hr): BMI result Body Mass Index 34.2 Assessment & Plan Assessment & Plan (1) Other specified persistent mood disorders: Status: Acute Code(s): F34.89 - Other specified persistent mood disorders (2) Generalized anxiety disorder: Status: Acute Code(s): F41.1 - Generalized anxiety disorder (3) Attention-deficit hyperactivity disorder, unspecified type: Status: Acute Code(s): F90.9 - Attention-deficit hyperactivity disorder, unspecified type Plan PT with hx of poly substance may be not best candidate for stimulant though some might argue MAT in some setting like with like re stimulant but pt seems mildly hypomanic so ? bipolar 2 for now continue current meds as stated above and fu with dc tomorrow and fu with outpatient provider Patient educated on: medication risk/benefits Informed Consent: understands and further education needed (re substance abuse and stimulants?) Reason for contiued partial hosp. stay Substantial Risk for: rapid decompensation Certification I certify that partial hospital treatment is medically necessary due to the symptoms and problems resulting from the patient's mental illness and the failure to treat the patient at the partial hospital level of care would likely result in the patient requiring inpatient psychiatric care which could not be prevented at a less intensive level of care. Total time managing care of this patient today ____ minutes. Discharge Plan Discharge Attending provider: Mavis White Medications: New guanfacine 1 mg tablet extended release 24 hr 1 mg PO DAILY Qty: 20 0RF aripiprazole 2 mg tablet 2 mg PO BEDTIME Qty: 14 0RF lamotrigine 25 mg tablet 50 mg PO DAILY 14 Days Qty: 28 0RF Continued bupropion HCl 300 mg tablet extended release 24 hr 300 mg PO DAILY naloxone [Narcan] 4 mg/actuation spray,non-aerosol See Rx Instructions .ROUTE .COMPLEX PRN (Reason: opioid overdose) Rx Instructions: spray 1 dose into ONE nostril; alternate nostrils w each dose until help arrives amlodipine 5 mg Tablet 5 mg PO DAILY hydroxyzine pamoate 25 mg capsule 25 mg PO TID PRN (Reason: Anxiety/Insomnia) Rx Instructions: TAKE ONE CAPSULE BY MOUTH THREE TIMES A DAY NEEDED FOR ANXIETY AND CAN TAKE FOUR CAPSULES BY MOUTH DAILY AT BEDTIME NEEDED FOR INSOMNIA. Print Language: Solomon Islander
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
== END 2025-07-23 23:59 | disposition home or self-care (01) ==
LOC: HO.PHPA 08:30
PROVIDERS: Visit Provider Psychiatry & Neurology Psychiatry
DX: F34.89 Other specified persistent mood disorders (principal); F33.1 Major depressive disorder, recurrent, moderate; F41.3 Other mixed anxiety disorders; F90.9 Attention-deficit hyperactivity disorder, unspecified type; F11.21 Opioid dependence, in remission; F14.21 Cocaine dependence, in remission; Z79.899 Other long term (current) drug therapy
CPT/HCPCS: 80307; 90791; 90853